=== PATIENT | female | born 1975 | race Two or more races ===

== ENCOUNTER 2025-05-25 17:46 | Emergency (ER) | payer OTHER ==
[~2025-05-25] VITALS: Ht 157.5 cm; Wt 59.0 kg
[2025-05-25] MEDS ORDERED: LEVOTHYROXINE25 MCG (18:36)
[2025-05-25] MEDS ORDERED: FAMOtidine 10 MG/ML (4ML VIAL) IV ONE (19:45)
[2025-05-25] MEDS ORDERED: ONDANSETRON HCL 2 MG/ML VIAL IV ONE (19:45)
[2025-05-25] MEDS ORDERED: 0.9 % SODIUM CHLORIDE 1,000 ML IV ONE (19:45)
[2025-05-25] MEDS ORDERED: KETOROLAC TROMETHAMINE 30 MG VIAL IV ONE (19:45)
[2025-05-25] MEDS ORDERED: KETOROLAC TROMETHAMINE 30 MG VIAL ONE (20:18)
[2025-05-25] MEDS ORDERED: ONDANSETRON HCL 2 MG/ML VIAL ONE (20:18)
[2025-05-25] MEDS ORDERED: FAMOTIDINE/PF 20 MG/2 ML VIAL ONE (20:19)
[2025-05-25 21:02] LABS: BASO % 0.2 % (0.1-1.2); EOS # 0.00 (0.04-0.54); EOS % 0.0 % (0.7-7.0); LYMPH # 0.80 (1.18-3.74); LYMPH % 7.7 % (19.3-53.1); MEAN PLATELET VOLUME 9.50 fl (9.4-12.4); MONO # 0.82 (0.24-0.82); MONO % 7.9 % (4.7-12.5); NEUT # 8.70 (1.56-6.13); NEUT % 84.1 % (34.0-71.1); RED CELL DISTRIBUTION WIDTH 21.7 % (11.6-14.4)
[2025-05-25 21:23] LABS: INR 0.95
[2025-05-25 21:28] LABS: ALT/SGPT 21.0 U/L (12-78); AST/SGOT 18.0 U/L (15-37); BILIRUBIN TOTAL 0.61 mg/dL (0.3-1.2); BUN CREA RATIO 14.0 (7.0-25.0); CREATININE SERUM 0.64 mg/dL (0.55-1.02); GFR 98.22; GLOBULINA 4.0 G/DL (2.4-3.5); GLUCOSE FASTING 102.0 mg/dL (65-100); OSMOLALITY SERUM 276.0 MOSM/KG (275-295)
[2025-05-25 21:45] LABS: URINE APPEARANCE Clear; URINE BILIRRUBIN Negative (NEGATIVE); URINE BLOOD Moderate; URINE COLOR Yellow; URINE GLUCOSE Negative (NEGATIVE); URINE KETONE 15 (NEGATIVE); URINE LEUKOCYTE Moderate; URINE NITRATE Negative; URINE PROTEIN Negative (NEGATIVE); URINE UROBILINOGEN 0.2 E.U./dl
[2025-05-25 21:48] LABS: URINE BACTERIA 2073.4 uL (0.0-1933); URINE EPITHELIAL CELLS 31.5 uL (0.0-38.8); URINE RBC 20.2 uL (0.0-20.8); URINE WBC 355.8 uL (0.0-23.2)
[2025-05-25 21:52] LABS: URINE CAST 0.14 uL (0.0-1.40)
[2025-05-25] MEDS ORDERED: CEFTRIAXONE SODIUM 1,000 MG VIAL ONE (21:53)
[2025-05-25] MEDS ORDERED: CEFTRIAXONE SODIUM 1,000 MG VIAL IV ONE (22:00)
[2025-05-25] MEDS ORDERED: BACTRIM DS TAB1 EACH PO (22:54)
[2025-05-25] MEDS ORDERED: PEPCID AC20 MG PO (22:54)
== END 2025-05-25 23:46 | disposition home or self-care (01) ==
LOC: ER 18:12
PROVIDERS: General Practice
DX: N39.0 Urinary tract infection, site not specified (principal); D07.0 Carcinoma in situ of endometrium; N85.2 Hypertrophy of uterus